=== PATIENT | female | born 1995 | race Caucasian/White ===

== ENCOUNTER 2023-09-27 12:31 | Emergency (ER) | payer SELFPAY ==
[2023-09-27 13:35] LABS: CORONAVIRUS COVID-19 NAA NEGATIVE (NEGATIVE); INFLUENZA A NAA NEGATIVE (NEGATIVE); RESPIRATORY SYNCYTIAL VIR NAA NEGATIVE (NEGATIVE)
[2023-09-27 15:02] LABS: BASOPHILS PERCENT AUTO 0.3 % (0.0-1.0); EOSINOPHILS ABSOLUTE AUTO 0.1 K/mm3 (0.0-0.4); EOSINOPHILS PERCENT AUTO 0.8 % (0.0-6.0); HEMATOCRIT 38.1 % (37.0-47.0); HEMOGLOBIN 12.8 gm/dl (12.0-16.0); IMMATURE GRAN ABSOLUTE AUTO 0.03 K/mm3 (0.00-0.05); IMMATURE GRAN PERCENT AUTO 0.3 % (0.0-0.4); LYMPHOCYTES ABSOLUTE AUTO 1.3 K/mm3 (1.0-4.8); LYMPHOCYTES PERCENT AUTO 14.9 % (24.0-44.0); MEAN CORPUSCULAR HEMOGLOBIN 27.9 pg (28.0-32.0); MEAN CORPUSCULAR HGB CONC 33.6 g/dl (32.0-36.0); MEAN CORPUSCULAR VOLUME 83.2 fl (83.0-99.0); MEAN PLATELET VOLUME 9.9 fl (9.4-12.3); MONOCYTES ABSOLUTE AUTO 0.9 K/mm3 (0.0-0.8); MONOCYTES PERCENT AUTO 10.6 % (0.0-8.0); NEUTROPHILS ABSOLUTE AUTO 6.3 K/mm3 (1.8-7.7); NEUTROPHILS PERCENT AUTO 73.1 % (41.0-71.0); PLATELET COUNT,PLT 281 K/mm3 (150-400); RED BLOOD CELL COUNT 4.58 M/mm3 (4.10-5.30); WHITE BLOOD CELL COUNT,WBC 8.67 K/mm3 (3.9-11.3)
[2023-09-27 15:28] LABS: ANION GAP 15.5 (5-15); BILIRUBIN TOTAL 0.3 mg/dL (0.2-1.0); BUN/CREATININE RATIO 5.6 (14-18); C-REACTIVE PROTEIN 0.43 mg/dL (<0.30); CALCIUM 9.5 mg/dL (8.5-10.1); CREATININE 0.9 mg/dL (0.55-1.02); EST CRCL DRUG DOSING (CG) 95.52 mL/min; POTASSIUM,K 4.5 mEq/L (3.5-5.1); PROTEIN TOTAL,TP 7.9 g/dl (6.4-8.2)
== END 2023-09-27 16:04 | disposition home or self-care (01) ==
LOC: JD.ED 12:31
DX: J01.90 Acute sinusitis, unspecified (principal); R07.89 Other chest pain; R05.1 Acute cough; F17.210 Nicotine dependence, cigarettes, uncomplicated; Z91.040 Latex allergy status; Z79.899 Other long term (current) drug therapy
CPT/HCPCS: 0241U; 36415; 71046; 80053; 85025; 86140; 93005; 99285; 93010; 99283